=== PATIENT | female | born 1965 | race Caucasian/White ===

== ENCOUNTER → 2016-11-25 | Outpatient (CLI) | payer MEDICARE, OTHER | END | disposition home or self-care (01) | LOC: LABWHC1 14:02 | PROVIDERS: ATTEND Physical Medicine & Rehabilitation | DX: M47.812 Spondylosis without myelopathy or radiculopathy, cervical region (principal); M47.817 Spondylosis without myelopathy or radiculopathy, lumbosacral region; M51.17 Intervertebral disc disorders with radiculopathy, lumbosacral region; F43.10 Post-traumatic stress disorder, unspecified; M96.1 Postlaminectomy syndrome, not elsewhere classified; M51.24 Other intervertebral disc displacement, thoracic region; F45.41 Pain disorder exclusively related to psychological factors; Z16.30 Resistance to unspecified antimicrobial drugs; Z79.899 Other long term (current) drug therapy | CPT/HCPCS: 36415; 85652; 86140 ==

== ENCOUNTER → 2016-12-01 | Outpatient (CLI) | payer MEDICARE, OTHER ==
--- NOTE | 2016-12-02 07:28 | CT ---
EXAMINATION TYPE: CT lumbar spine wo con DATE OF EXAM: 12/01/2016 8:05 PM COMPARISON: Previous study dated 03/31/2016 HISTORY: severe low back pain CT DLP: 619.2 mGycm Automated exposure control for dose reduction was used. Unenhanced CT of the lumbar spine was performed. Bone and soft tissue window settings are submitted as well as coronal and sagittal reconstructions. FINDINGS: Visualized portions of the lungs are clear. There is no pleural or pericardial fluid. Paraspinal soft tissues are normal. There is a minimal degenerative grade 1 spondylolisthesis of L4-L5. Alignment otherwise normal. No fr actures are seen. At T12-L1 and L1-2, no definite abnormality is seen. At L2-3, there is mild disc space loss. There is a diffuse disc displacement. The intervertebral fora nabil are well maintained. The facets are unremarkable. At L3-4, the intervertebral foramina are well maintained. There is a diffuse disc displacement. There is mild hypertrophic changes in the facets. At L4-5, there is disc space loss. The intervertebral foramina are well maintained. There is moderate hypertrophic changes in the facets. There is a diffuse disc displacement. At L5-S1, there is disc space loss and vacuum phenomena. The intervertebral foramina are well [place]. There is a right paracentral disc protrusion displacing the traversing S1 nerve root on the righ t. IMPRESSION: 1. Right paracentral disc protrusion, L5-S1, displacing the traversing right S1 nerve root. 2. Diffuse degenerative disc disease and facet arthropathy.
== END | disposition home or self-care (01) ==
LOC: RADCTMAIN 19:40
PROVIDERS: ATTEND Physical Medicine & Rehabilitation
DX: M51.17 Intervertebral disc disorders with radiculopathy, lumbosacral region (principal); M51.16 Intervertebral disc disorders with radiculopathy, lumbar region; M46.86 Other specified inflammatory spondylopathies, lumbar region
CPT/HCPCS: 72131

== ENCOUNTER → 2017-01-24 | Outpatient (CLI) | payer MEDICARE, OTHER ==
--- NOTE | 2017-01-24 15:00 | XR ---
EXAMINATION TYPE: XR cervical spine limited DATE OF EXAM: 01/24/2017 2:53 PM COMPARISON: NONE HISTORY: Postop cervical disc surgery TECHNIQUE: 3 view cervical spine FINDINGS: Disc spaces are present C5-6 C6-7. Prevertebral space appears normal. Alignment appears nor mal. Posterior spinal lamellar line is intact. Remaining disc heights are preserved. Vertebral body h eights are preserved. IMPRESSION: 1. Postsurgical disc changes C5-6 C6-7.
== END | disposition home or self-care (01) ==
LOC: RADXRMAIN 14:37
PROVIDERS: ATTEND Neurological Surgery
DX: Z09 Encounter for follow-up examination after completed treatment for conditions other than malignant neoplasm (principal); Z98.1 Arthrodesis status
CPT/HCPCS: 72040

== ENCOUNTER → 2017-03-02 | Outpatient (CLI) | payer MEDICARE, OTHER ==
--- NOTE | 2017-03-02 15:42 | XR ---
Cervical spine HISTORY: Postop cervical spine disc replacement Exam correlated to previous dated for January 2017 The postoperative changes are stable, alignment is unchanged. Multilevel facet arthropathy is noted. Patient is edentulous. Incidental note made of calcified granuloma in the lung apices. Scoliotic curv ature in the thoracic spine. IMPRESSION: Stable postoperative follow-up.
== END | disposition home or self-care (01) ==
LOC: RADXRMAIN 15:03
PROVIDERS: ATTEND Neurological Surgery
DX: M50.30 Other cervical disc degeneration, unspecified cervical region (principal); Z98.890 Other specified postprocedural states
CPT/HCPCS: 72040

== ENCOUNTER → 2017-05-16 | Outpatient (CLI) | payer MEDICARE, OTHER ==
--- NOTE | 2017-05-17 08:42 | MM ---
Reason for exam: clinical finding. Last mammogram was performed 2 years and 2 months ago. History: Patient is postmenopausal. Family history of breast cancer in mother at age 61 and breast cancer in paternal grandmother at age 70. Excisional biopsy of the left breast, July 22, 2008. Took hormonal contraceptives for 3 years beginning at age 19. Took estrogen for 3 years beginning at age 44. Indicated problem(s): palpable abnormality and lump or thickening in the left breast. Physical Findings: Nurse Summary: 0.5 x 0.5cm nodule in the left breast at 10 o'clock and 2 o' clock (nurse cw). MG 3D Diag Mammo W/Cad ELIAN Bilateral CC and MLO view(s) were taken. Prior study comparison: March 13, 2015, left breast MG work up mamm w CAD LT. March 05, 2015, bilateral MG screening mammo w CAD. April 23, 2013, CAD bilateral diagnostic mammogram. The breast tissue is heterogeneously dense. This may lower the sensitivity of mammography. There is chronic nodularity in the left breast. 2 palpable markers at the left breast. A 5mm nodular asymmetry central posterior right breast is suspected benign. Previous exams did not include this far posterior tissue. 6 month follow up recommended for the right breast. These results were verbally communicated with the patient and result sheet given to the patient on 05/16/17. ASSESSMENT: Incomplete: need additional imaging evaluation, BI-RAD 0 RECOMMENDATION: Ultrasound of the left breast. (targeting palpable) MTDD
--- NOTE | 2017-05-17 08:45 | USB ---
Reason for exam: additional evaluation requested from abnormal screening. History: Patient is postmenopausal. Family history of breast cancer in mother at age 61 and breast cancer in paternal grandmother at age 70. Excisional biopsy of the left breast, July 22, 2008. Took hormonal contraceptives for 3 years beginning at age 19. Took estrogen for 3 years beginning at age 44. US Breast LT Left breast ultrasound includes all four quadrants, the retroareolar region and axilla. Finding demonstrates a 0.4 x 0.4 x 0.4cm round, cystic lesion at palpable site at 3 o'clock, benign, and corresponding to the chronic mammographic nodularity. No solid or cystic lesion seen at the second 10 o'clock palpable site. These results were verbally communicated with the patient and result sheet given to the patient on 05/16/17. ASSESSMENT: Probably benign, BI-RAD 3 RECOMMENDATION: 1. Follow-up diagnostic right mammogram in 6 months for the mammographic nodularity. 2. Manage on a clinical basis with regard to any suspicious palpable areas. BLANCA
== END | disposition home or self-care (01) ==
LOC: RADMAMWWP 13:45
PROVIDERS: ATTEND Family Medicine
DX: N63 Unspecified lump in breast (principal)
CPT/HCPCS: 76641; G0204; G0279

== ENCOUNTER → 2019-03-22 | Outpatient (CLI) | payer MEDICARE, OTHER ==
[2019-03-22 12:18] LABS: HCT 41.8 % (34.0-46.0); HGB 14.1 gm/dL (11.4-16.0); MCH 31.2 pg (25.0-35.0); MCHC 33.6 g/dL (31.0-37.0); MCV 92.8 fL (80.0-100.0); Mean Platelet Volume 6.6; Platelet Count 262 k/uL (150-450); RBC 4.51 m/uL (3.80-5.40); RDW 13.4 % (11.5-15.5); WBC 6.9 k/uL (3.8-10.6)
[2019-03-22 12:22] LABS: Appearance,Urine Clear (Clear); Bilirubin,Urine Negative (Negative); Blood,Urine Negative (Negative); Color,Urine Colorless; Glucose,Urine (UA) Negative (Negative); Ketones,Urine Negative (Negative); Leukocyte Esterase,Urine Negative (Negative); Nitrite,Urine Negative (Negative); Protein,Urine Negative (Negative); Specific Gravity,Urine 1.003 (1.001-1.035); Urobilinogen,Urine <2.0 mg/dL (<2.0)
[2019-03-22 14:21] LABS: Erythrocyte Sedimentation Rate 10 mm/hr (0-20)
[2019-03-22 19:01] LABS: African American GFR (CKD) 74.5 (60.0-200.0); Albumin 4.6 g/dL (3.80-4.90); Albumin/Globulin Ratio 2.42 (1.60-3.17); Anion Gap 5.7 mmol/L (4.00-12.00); C Reactive Protein 0.6 mg/dL (0.0-0.8); Carbon Dioxide 23.3 mmol/L (21.6-31.8); Globulin 1.9 g/dL (1.6-3.3); Magnesium 1.9 mg/dL (1.5-2.4); Potassium 4.1 mmol/L (3.5-5.5); Total Bilirubin 0.3 mg/dL (0.3-1.2); Total Protein 6.5 g/dL (6.2-8.2)
[2019-03-22 19:07] LABS: Folate, Serum 5.5 ng/mL
[2019-03-22 20:04] LABS: Vitamin D 25 Hydroxy 14.1 ng/mL (30.0-100.0)
[2019-03-22 20:25] LABS: Hemoglobin A1C 5.5 % (4.0-6.0)
[2019-03-22 20:31] LABS: Cyclic Citrull Pep IgG Unit <0.5 U/mL; Cyclic Citrullinated Pep IgG NEGATIVE (NEGATIVE); DNA Double-Stranded NEGATIVE (NEGATIVE); RNP 0.2 AI; Scleroderma SC-70 Ab <0.2 AI
[2019-03-26 06:58] LABS: Vit B1(Thiamine) 91 ug/L (38-122)
[2019-03-26 13:13] LABS: Histone Antibody 0.4 UNITS (<1.0)
[2019-03-26 13:45] LABS: Vitamin K 0.59 nmol/L (0.22-4.88)
[2019-03-27 06:29] LABS: Vitamin E (Alpha Tocopherol) 1007 ug/dL (500-1800)
[2019-03-29 14:18] LABS: Nicotinuric Acid None Detected
== END ==
LOC: LABWHC1 11:25
PROVIDERS: ATTEND Psychiatry & Neurology Pain Medicine
DX: G89.4 Chronic pain syndrome (principal); M79.7 Fibromyalgia; M25.50 Pain in unspecified joint; Z79.899 Other long term (current) drug therapy
CPT/HCPCS: 36415; 80053; 81003; 82306; 82550; 82607; 82746; 83036; 83516; 83519; 83540; 83550; 83735; 84207; 84425; 84446; 84590; 84591; 84597; 85027; 85652; 86038; 86140; 86200; 86225; 86235

== ENCOUNTER 2020-08-04 16:16 | Emergency (ER) | payer MEDICARE, OTHER ==
[2020-08-04 16:27] VITALS: RESP 18
--- NOTE | 2020-08-04 16:40 | ED ---
Psych HPI - General Source: patient, RN notes reviewed Mode of arrival: ambulatory Limitations: no limitations <Mika Harp - Last Filed: 08/04/20 16:38> <Judah Acuna - Last Filed: 08/04/20 19:52> - General Chief Complaint: Psychiatric Symptoms Stated Complaint: mental health Time Seen by Provider: 08/04/20 16:30 - History of Present Illness Initial Comments: This a 55-year-old female that presents to the emergency Department with chief complaint of depression, suicidal ideation. Patient states she was arrested last night and states that she was told that she may spend 2 years and [facility] because she's been taking her father's Dilaudid tablets and states that she had 35 of Dilaudid tablets on her last night. Patient states that she is depressed she has had thoughts about overdosing. Patient does admit to occasional call use no homicidal ideation. She states that she is not spending 2 years in [facility] and states that she rather kill herself. Patient denies any other illicit drug use or prescription medication use that's not hers. Patient has chronic back issues. She states she has been hospitalized several times in the past. (Mika Harp) - Related Data Home Medications Medication Instructions Recorded Confirmed Escitalopram [Lexapro] 20 mg PO HS 07/09/15 03/31/16 Furosemide [Lasix] 20 mg PO DAILY 07/09/15 03/31/16 Gabapentin [Neurontin] 300 mg PO BID 07/09/15 03/31/16 Levothyroxine Sodium [Synthroid] 75 mcg PO DAILY 07/09/15 03/31/16 Naproxen 500 mg PO BID 07/09/15 03/31/16 clonazePAM [KlonoPIN] 1 mg PO BID PRN 07/09/15 03/31/16 Montelukast [Singulair] 10 mg PO HS 07/23/15 03/31/16 Simvastatin [Zocor] 20 mg PO HS 07/23/15 03/31/16 Triamcinolone 0.1% Cream [Kenalog 1 applicatio TOPICAL QID PRN 07/23/15 03/31/16 0.1% Cream] Ibuprofen [Motrin] 100 mg PO Q4H PRN 03/04/16 03/31/16 Oxymetazoline 0.05% Nasl [place] 2 spray EA NOSTRIL BID 03/04/16 03/31/16 [Afrin 0.05% Nasal [place]] Albuterol Sulfate [Proair Hfa] 1 - 2 puff INHALATION RT-Q6H PRN 03/31/16 03/31/16 Baclofen [Lioresal] 10 mg PO TID 03/31/16 03/31/16 Calcitonin Nasal [Fortical] 1 spray NASAL DAILY 03/31/16 03/31/16 Docusate [Colace] 100 mg PO DAILY 03/31/16 03/31/16 Hydrocodone/Acetaminophen [[place] 1 tab PO Q8H PRN 03/31/16 03/31/16 7.5-325] Hypromellose [Nature's Tears] 1 drop BOTH EYES BID PRN 03/31/16 03/31/16 Prazosin HCl 10 mg PO HS 03/31/16 03/31/16 Topiramate [Topamax] 25 mg PO BID 03/31/16 03/31/16 rOPINIRole HCL [Requip] 1 mg PO HS 03/31/16 03/31/16 Previous Rx's Medication Instructions Recorded Famotidine [Pepcid] 40 mg PO BID 30 Days tab 03/10/16 Allergies Allergy/AdvReac Type Severity Reaction Status Date / Time varenicline tartrate AdvReac Confusion Verified 08/04/20 16:21 [From Chantix] Review of Systems ROS Other: All systems not noted in ROS Statement are negative. <Mika Harp - Last Filed: 08/04/20 16:38> ROS Other: All systems not noted in ROS Statement are negative. <Judah Acuna - Last Filed: 08/04/20 19:52> ROS Statement: Those systems with pertinent positive or pertinent negative responses have been documented in the HPI. Past Medical History Past Medical History: Fibromyalgia, Hyperlipidemia, Neurologic Disorder, Ost eoarthritis (OA), Seizure Disorder, Thyroid Disorder Additional Past Medical History / Comment(s): MIGRAINES, NEUROPATHY HANDS, FEET & LEGS, " RESTLESS BODY SYNDROME,". SCOLIOSIS, DDD, BACK PAIN. , RASH ON WRIST, ANEMIA. , HX OF EXPOSURE TO AGENT ORANGE, SEIZURES SINCE PUBERTY FROM POSSIBLE CHEMICAL EXPOSURE. , HX OF VIRAL VERTIGO. History of Any Multi-Drug Resistant Organisms: None Reported Past Surgical History: Back Surgery, Breast Surgery, Hysterectomy, Orthopedic Surgery Additional Past Surgical History / Comment(s): ACL REPAIR BOTH KNEES , LUNG BIOPSY 30 YEARS AGO, LUMPECTOMY LEFT BREAST. Past Anesthesia/Blood Transfusion Reactions: No Reported Reaction Past Psychological History: Anxiety, Depression, PTSD Smoking Status: Current every day smoker Past Alcohol Use History: Occasional Past Drug Use History: Marijuana - Past Family History Mother Family Medical History: Cancer Additional Family Medical History / Comment(s): BREAST CANCER Father Family Medical History: Cancer Additional Family Medical History / Comment(s): 5 DIFFERENT CANCERS. Sister(s) Family Medical History: Coronary Artery Disease (CAD) Additional Family Medical History / Comment(s): CABG @ 47 YRS OLD <Mika Harp M - Last Filed: 08/04/20 16:38> General Exam Limitations: no limitations General appearance: alert, in no apparent distress Head exam: Present: atraumatic, normocephalic, normal inspection Eye exam: Present: normal appearance, PERRL, EOMI. Absent: scleral icterus, conjunctival injection, periorbital swelling ENT exam: Present: normal exam, normal oropharynx, mucous membranes moist Neck exam: Present: normal inspection, full ROM. Absent: tenderness, meningismus, lymphadenopathy Respiratory exam: Present: normal lung sounds bilaterally. Absent: respiratory distress, wheezes, rales, rhonchi, stridor Cardiovascular Exam: Present: regular rate (Heart rate 102 on exam), normal rhythm, normal heart sounds. Absent: systolic murmur, diastolic murmur, rubs, gallop, clicks GI/Abdominal exam: Present: soft, normal bowel sounds. Absent: distended, tenderness, guarding, rebound, rigid Neurological exam: Present: alert, oriented X3 Psychiatric exam: Present: depressed, flat affect Skin exam: Present: warm, dry, intact, normal color. Absent: rash <Mika Harp M - Last Filed: 08/04/20 16:38> Course Vital Signs 08/04/20 16:21 Temperature 98.5 F Pulse Rate 118 H Respiratory 18 Rate Blood Pressure 117/68 O2 Sat by Pulse 94 L Oximetry Medical Decision Making <Judah Acuna - Last Filed: 08/04/20 19:52> - Medical Decision Making Patient evaluate EPS. The recommended discharged follow-up with her outpatient providers. Patient upon reevaluation is calm and agreeable to discharge. (Judah Acuna) - Lab Data Lab Results 08/04/20 Range/Units 16:41 Urine Opiates Screen Not Detected (NotDetected) Ur Oxycodone Screen Not Detected (NotDetected) Urine Methadone Screen Not Detected (NotDetected) Ur Propoxyphene Screen Not Detected (NotDetected) Ur Barbiturates Screen Not Detected (NotDetected) U Tricyclic Antidepress Not Detected (NotDetected) Ur Phencyclidine Scrn Not Detected (NotDetected) Ur Amphetamines Screen Not Detected (NotDetected) U Methamphetamines Scrn Not Detected (NotDetected) U Benzodiazepines Scrn Not Detected (NotDetected) Urine Cocaine Screen Not Detected (NotDetected) U Marijuana (THC) Screen Not Detected (NotDetected) Disposition <Mika Harp - Last Filed: 08/04/20 16:38> Is patient prescribed a controlled substance at d/c from ED?: No Time of Disposition: 19:52 <Judah Acuna - Last Filed: 08/04/20 19:52> Clinical Impression: Depressed Disposition: HOME SELF-CARE Condition: Good Instructions (If sedation given, give patient instructions): Medical Clearance for Psychiatric Care (ED) Referrals: Marta Oneal MD [Primary Care Provider] - 1-2 days
[2020-08-04 17:29] LABS: Amphetamine Screen,Urine Not Detected (NotDetected); Barbiturate Screen,Urine Not Detected (NotDetected); Benzodiazepines Screen,Urine Not Detected (NotDetected); Cocaine Screen,Urine Not Detected (NotDetected); Methadone Screen, Urine Not Detected (NotDetected); Opiate Screen,Urine Not Detected (NotDetected); Oxycodone Screen, Urine Not Detected (NotDetected); Phencyclidine Screen,Urine Not Detected (NotDetected); Tricyclic Antidepressant,Urine Not Detected (NotDetected); Urn Cannabinoid Scrn Not Detected (NotDetected)
[2020-08-04 20:15] VITALS: BP 136/76; PULSE 110; TEMP 98.6
== END 2020-08-04 20:18 | disposition home or self-care (01) ==
LOC: EC 16:16
DX: F32.9 Major depressive disorder, single episode, unspecified (principal); R45.851 Suicidal ideations; M79.7 Fibromyalgia; E78.5 Hyperlipidemia, unspecified; M19.90 Unspecified osteoarthritis, unspecified site; G40.909 Epilepsy, unspecified, not intractable, without status epilepticus; F41.9 Anxiety disorder, unspecified; F43.10 Post-traumatic stress disorder, unspecified; E07.9 Disorder of thyroid, unspecified; G25.81 Restless legs syndrome; G62.9 Polyneuropathy, unspecified; F17.200 Nicotine dependence, unspecified, uncomplicated; Z88.8 Allergy status to other drugs, medicaments and biological substances; Z79.1 Long term (current) use of non-steroidal anti-inflammatories (NSAID); Z79.899 Other long term (current) drug therapy; Z98.890 Other specified postprocedural states
CPT/HCPCS: 80306; 82075; 99285

== ENCOUNTER → 2020-08-27 | Outpatient (CLI) | payer MEDICARE, OTHER ==
--- NOTE | 2020-08-27 08:51 | CT ---
EXAMINATION TYPE: CT thoracic spine wo con DATE OF EXAM: 08/27/2020 COMPARISON: None HISTORY: . Viral female pain in thoracic spine / herniated disk T7-T8 TECHNIQUE: Contiguous axial scanning of the thoracic spine without IV contrast. Coronal and sagittal reconstructions performed. CT DLP: 622.5 mGycm Automated exposure control for dose reduction was used. FINDINGS: Small cervical ribs. Small T12 ribs. Some postoperative fusion changes within the visualized cervical spine. Accentuated mid thoracic kyphosis. Mild degenerative disc disease midthoracic spine with mild disc sp ventura narrowing and anterior endplate spondylosis. There is a central disc protrusion at T7-T8 which impresses on the ventral thecal sac but does not se em to contribute any significant spinal canal stenosis by CT. Facet arthropathy T11-T12 on the right. Also at T8-T9 on both sides. This contributes to mild neural foraminal narrowing at these levels. Small calcified granulomas throughout the lungs. No prevertebral paravertebral soft tissue abnormalit y. Gentle dextroconvex curvature centered along the mid thoracic spine. Vertebral body heights are prese rved and alignment is maintained. IMPRESSION: 1. GENTLE DEXTROCONVEX CURVATURE ALONG THE MID THORACIC SPINE. ACCENTUATED MID THORACIC KYPHOSIS WITH MILD DEGENERATIVE DISC DISEASE. 2. NO VERTEBRAL COMPRESSION COLLAPSE OR MALALIGNMENT. VERTEBRAE CENTRAL DISC PROTRUSION AT T7-T8 IMPRESSES ON THE VENTRAL THECAL SAC BUT DOES NOT SEEM TO C ONTRIBUTE ANY SIGNIFICANT SPINAL CANAL STENOSIS. 3. SMALL CERVICAL RIBS AND SMALL T12 RIBS. PARTIALLY VISUALIZED CERVICAL FUSION CHANGES. 4. MILD FACET ARTHROPATHY CONTRIBUTING TO MILD NEURAL FORAMINAL NARROWING ON THE RIGHT AT T11-T12 AND ON BOTH SIDES AT T8-T9.
== END | disposition home or self-care (01) ==
LOC: RADCTMAIN 08:07
PROVIDERS: ATTEND Psychiatry & Neurology Neurology
DX: M48.04 Spinal stenosis, thoracic region (principal); M51.24 Other intervertebral disc displacement, thoracic region; M51.34 Other intervertebral disc degeneration, thoracic region; M47.814 Spondylosis without myelopathy or radiculopathy, thoracic region; M40.294 Other kyphosis, thoracic region; Z98.1 Arthrodesis status
CPT/HCPCS: 72128

== ENCOUNTER → 2021-04-13 | Outpatient (CLI) | payer MEDICARE, OTHER ==
--- NOTE | 2021-04-13 15:09 | CTL ---
EXAMINATION TYPE: CT Low Dose Lung DATE OF EXAM ORDERED: 04/13/2021 COMPARISON: July 24 the cervical HISTORY: . Low Dose CT Lung Screening IV CONTRAST USED: None. SCREENING VISIT: First visit COMPARISON: None. TECHNIQUE: Low dose computed tomography scan was performed through the chest at 1 millimeter thick se ctions and reconstructed images in the coronal plane at [address] DIAGNOSTIC QUALITY: Satisfactory FINDINGS: LUNG NODULES: Calcified scattered pulmonary nodules are present. No noncalcified pulmonary nodules se en at this time. LUNGS: COPD: Severity: Mild Fibrosis: Severity:None Lymph nodes: None Other findings: None RIGHT PLEURAL SPACE: Effusion: None Calcification: None Thickening: None Pneumothorax: None LEFT PLEURAL SPACE: Effusion: None Calcification: None Thickening: None Pneumothorax: None HEART: Heart Size: Mildly enlarged Coronary calcification: Mild Pericardial effusion: None OTHER FINDINGS: Upper abdomen: No significant abnormality Bony thorax: Degenerative changes Supraclavicular region: No significant abnormalityOther: No significant abnormalityI IMPRESSION: Benign FOLLOW UP CT CHEST RECOMMENDATION: Follow-up screening in one year CT LUNG RAD: LUNG RAD CATEGORY category 1 benign
== END | disposition home or self-care (01) ==
LOC: RADCTMAIN 13:34
PROVIDERS: ATTEND Family Medicine
DX: Z12.2 Encounter for screening for malignant neoplasm of respiratory organs (principal); Z87.891 Personal history of nicotine dependence
CPT/HCPCS: 71271

== ENCOUNTER 2021-08-09 04:13 | Inpatient (IN) | payer MEDICARE, OTHER ==
[2021-08-09] MEDS ORDERED: SODIUM CHLORIDE 0.9% 2,000 ML IV ONE (04:22)
--- NOTE | 2021-08-09 04:45 | ED ---
Overdose HPI - General Stated Complaint: Mental Health Time Seen by Provider: 08/09/21 04:21 Source: patient, EMS Mode of arrival: EMS Limitations: physical limitation (Patient is uncooperative with history of this) - History of Present Illness Initial Comments: This patient is a 56-year-old woman who is brought to be evaluated for suspected toxic mushroom ingestion. The patient had reportedly called the [place] crisis line stating that she was attempting to kill herself by ingesting tea made from [employer] Mushrooms. The patient would not provide further details. She cannot state when she ingestion. MD Complaint: intentional overdose -: unknown Intent: suicide attempt How Overdose Was Discovered: called suicide hotline - Related Data Home Medications Medication Instructions Recorded Confirmed Escitalopram [Lexapro] 20 mg PO HS 07/09/15 03/31/16 Furosemide [Lasix] 20 mg PO DAILY 07/09/15 03/31/16 Gabapentin [Neurontin] 300 mg PO BID 07/09/15 03/31/16 Levothyroxine Sodium [Synthroid] 75 mcg PO DAILY 07/09/15 03/31/16 Naproxen 500 mg PO BID 07/09/15 03/31/16 clonazePAM [KlonoPIN] 1 mg PO BID PRN 07/09/15 03/31/16 Montelukast [Singulair] 10 mg PO HS 07/23/15 03/31/16 Simvastatin [Zocor] 20 mg PO HS 07/23/15 03/31/16 Triamcinolone 0.1% Cream [Kenalog 1 applicatio TOPICAL QID PRN 07/23/15 03/31/16 0.1% Cream] Ibuprofen [Motrin] 100 mg PO Q4H PRN 03/04/16 03/31/16 Oxymetazoline 0.05% Nasl [place] 2 spray EA NOSTRIL BID 03/04/16 03/31/16 [Afrin 0.05% Nasal [place]] Albuterol Sulfate [Proair Hfa] 1 - 2 puff INHALATION RT-Q6H PRN 03/31/16 03/31/16 Baclofen [Lioresal] 10 mg PO TID 03/31/16 03/31/16 Calcitonin Nasal [Fortical] 1 spray NASAL DAILY 03/31/16 03/31/16 Docusate [Colace] 100 mg PO DAILY 03/31/16 03/31/16 Hydrocodone/Acetaminophen [[place] 1 tab PO Q8H PRN 03/31/16 03/31/16 7.5-325] Hypromellose [Nature's Tears] 1 drop BOTH EYES BID PRN 03/31/16 03/31/16 Prazosin HCl 10 mg PO HS 03/31/16 03/31/16 Topiramate [Topamax] 25 mg PO BID 03/31/16 03/31/16 rOPINIRole HCL [Requip] 1 mg PO HS 03/31/16 03/31/16 Previous Rx's Medication Instructions Recorded Famotidine [Pepcid] 40 mg PO BID 30 Days tab 03/10/16 Allergies Allergy/AdvReac Type Severity Reaction Status Date / Time varenicline tartrate AdvReac Confusion Verified 08/04/20 16:21 [From Chantix] Review of Systems ROS Statement: Those systems with pertinent positive or pertinent negative responses have been documented in the HPI. ROS Other: All systems not noted in ROS Statement are negative. Limitations: ROS unobtainable due to patients medical condition Past Medical History Past Medical History: Fibromyalgia, Hyperlipidemia, Neurologic Disorder, Osteoarthritis (OA), Seizure Disorder, Thyroid Disorder Additional Past Medical History / Comment(s): MIGRAINES, NEUROPATHY HANDS, FEET & LEGS, " RESTLESS BODY SYNDROME,". SCOLIOSIS, DDD, BACK PAIN. , RASH ON WRIST, ANEMIA. , HX OF EXPOSURE TO AGENT ORANGE, SEIZURES SINCE PUBERTY FROM POSSIBLE CHEMICAL EXPOSURE. , HX OF VIRAL VERTIGO. History of Any Multi-Drug Resistant Organisms: None Reported Past Surgical History: Back Surgery, Breast Surgery, Hysterectomy, Orthopedic Surgery Additional Past Surgical History / Comment(s): ACL REPAIR BOTH KNEES , LUNG BIOPSY 30 YEARS AGO, LUMPECTOMY LEFT BREAST. Past Anesthesia/Blood Transfusion Reactions: No Reported Reaction Past Psychological History: Anxiety, Depression, PTSD Smoking Status: Current every day smoker Past Alcohol Use History: Occasional Past Drug Use History: Marijuana - Past Family History Mother Family Medical History: Cancer Additional Family Medical History / Comment(s): BREAST CANCER Father Family Medical History: Cancer Additional Family Medical History / Comment(s): 5 DIFFERENT CANCERS. Sister(s) Family Medical History: Coronary Artery Disease (CAD) Additional Family Medical History / Comment(s): CABG @ 47 YRS OLD General Exam General appearance: alert, in no apparent distress Head exam: Present: atraumatic, normocephalic Eye exam: Present: normal appearance, PERRL, EOMI. Absent: scleral icterus, conjunctival injection Neck exam: Present: normal inspection, full ROM Respiratory exam: Present: normal lung sounds bilaterally. Absent: respiratory distress, wheezes, rales, rhonchi, stridor Cardiovascular Exam: Present: regular rate, normal rhythm, normal heart sounds. Absent: systolic murmur, diastolic murmur, rubs, gallop GI/Abdominal exam: Present: soft. Absent: distended, tenderness, guarding, rebound, mass Extremities exam: Present: normal inspection, normal capillary refill. Absent: pedal edema, calf tenderness Back exam: Present: normal inspection. Absent: CVA tenderness (R), CVA tenderness (L) Neurological exam: Present: alert Psychiatric exam: Present: flat affect. Absent: agitated, manic, homicidal ideation Skin exam: Present: warm, dry, intact, normal color. Absent: rash Course Vital Signs 08/09/21 04:20 Temperature 97.9 F Pulse Rate 112 H Respiratory 18 Rate Blood Pressure 140/73 O2 Sat by Pulse 97 Oximetry Procedures - Restraint - Face to Face Restraint Occurrence 1 Patient's Immediate Situation: Endangers self safety, Endangers staff safety Patient's Reaction to the Intervention: Angry, Bizarre, Aggressive Patient's Medical & Behavioral Condition: Paranoid, Suicidal thoughts, Bizarre behavior Need to Continue or Terminate Restraint or Seclusion: Continue Face to Face Eval of Restraint Date: 08/09/21 Face to Face Eval of Restraint Time: 04:50 Medical Decision Making - Lab Data Result diagrams: 08/09/21 05:10 Lab Results 08/09/21 08/09/21 Range/Units 05:10 05:10 WBC 10.8 H (3.8-10.6) k/uL RBC 5.25 (3.80-5.40) m/uL Hgb 17.0 H (11.4-16.0) gm/dL Hct 51.2 H (34.0-46.0) % MCV 97.7 (80.0-100.0) fL MCH 32.4 (25.0-35.0) pg MCHC 33.2 (31.0-37.0) g/dL RDW 13.9 (11.5-15.5) % Plt Count 319 (150-450) k/uL MPV 7.3 Neutrophils % 51 % Lymphocytes % 40 % Monocytes % 4 % Eosinophils % 2 % Basophils % 1 % Neutrophils # 5.4 (1.3-7.7) k/uL Lymphocytes # 4.3 (1.0-4.8) k/uL Monocytes # 0.4 (0-1.0) k/uL Eosinophils # 0.3 (0-0.7) k/uL Basophils # 0.1 (0-0.2) k/uL PT 9.9 (9.0-12.0) sec INR 0.9 (<1.2) APTT 25.0 (22.0-30.0) sec Disposition Referrals: Marta Oneal MD [Primary Care Provider] - 1-2 days
[2021-08-09 05:25] LABS: Basophils # (A) 0.1 k/uL (0-0.2); Basophils % (A) 1 %; Eosinophils # (A) 0.3 k/uL (0-0.7); Eosinophils % (A) 2 %; HCT 51.2 % (34.0-46.0); Lymphocytes # (A) 4.3 k/uL (1.0-4.8); Lymphocytes % (A) 40 %; MCH 32.4 pg (25.0-35.0); MCHC 33.2 g/dL (31.0-37.0); MCV 97.7 fL (80.0-100.0); Mean Platelet Volume 7.3; Monocytes # (A) 0.4 k/uL (0-1.0); Monocytes % (A) 4 %; Neutrophils # (A) 5.4 k/uL (1.3-7.7); Neutrophils % (A) 51 %; Platelet Count 319 k/uL (150-450); RBC 5.25 m/uL (3.80-5.40); RDW 13.9 % (11.5-15.5); WBC 10.8 k/uL (3.8-10.6)
[2021-08-09 05:36] LABS: INR 0.9 (<1.2); Prothrombin Time 9.9 sec (9.0-12.0)
[2021-08-09 05:57] LABS: ALT 39 U/L (4-34); AST 35 U/L (14-36); Acetaminophen <10.0 ug/mL; African American GFR (CKD) 71 (>60 ml/min/1.73 sqM); Albumin 5.2 g/dL (3.5-5.0); Alkaline Phosphatase 98 U/L (38-126); Anion Gap 24 mmol/L; Blood Urea Nitrogen 13 mg/dL (7-17); Calcium 10.3 mg/dL (8.4-10.2); Carbon Dioxide 12 mmol/L (22-30); Chloride 110 mmol/L (98-107); Glucose 128 mg/dL (74-99); Non-African American GFR(CKD) 62 (>60 ml/min/1.73 sqM); Potassium 4.7 mmol/L (3.5-5.1); Salicylate <1.0 mg/dL; Sodium 146 mmol/L (137-145); Total Bilirubin 0.5 mg/dL (0.2-1.3); Total Protein 8.4 g/dL (6.3-8.2)
[2021-08-09] MEDS ORDERED: ACTIVATED CHARCOAL-SORBITOL 50 GM/240 ML BOTTLE PO STA (06:21)
[2021-08-09 06:35] LABS: Alcohol 215 mg/dL
[2021-08-09] MEDS ORDERED: ALBUTEROL NEBULIZED 2.5 MG/3 ML INHALATION STA (06:48)
[2021-08-09] MEDS ORDERED: NALOXONE 0.4 MG/ML 1 ML VIAL IV PRN (07:11)
[2021-08-09] MEDS: SODIUM CHLORIDE 0.9% 1,000 ML IV SCH ×2 (08:29→14:48)
[2021-08-09 09:15] LABS: VBG PH 7.24 (7.31-7.41)
[2021-08-09] MEDS: DEXTROSE 5% IN WATER 1,000 ML with SODIUM BICARB (1 MEQ/ML) 150 ML IV SCH ×2 (12:06→20:49)
[2021-08-09 12:19] LABS: Amphetamine Screen,Urine Not Detected (NotDetected); Barbiturate Screen,Urine Not Detected (NotDetected); Benzodiazepines Screen,Urine Not Detected (NotDetected); Cocaine Screen,Urine Not Detected (NotDetected); Methadone Screen, Urine Not Detected (NotDetected); Opiate Screen,Urine Not Detected (NotDetected); Oxycodone Screen, Urine Not Detected (NotDetected); Phencyclidine Screen,Urine Not Detected (NotDetected); Tricyclic Antidepressant,Urine Not Detected (NotDetected); Urn Cannabinoid Scrn Detected (NotDetected)
[2021-08-09 13:34] LABS: ALT 31 U/L (4-34); AST 28 U/L (14-36); African American GFR (CKD) >90 (>60 ml/min/1.73 sqM); Albumin 3.8 g/dL (3.5-5.0); Alkaline Phosphatase 79 U/L (38-126); Anion Gap 10 mmol/L; Blood Urea Nitrogen 9 mg/dL (7-17); C Reactive Protein 1.2 mg/dL (<1.0); Carbon Dioxide 17 mmol/L (22-30); Chloride 113 mmol/L (98-107); Creatine Kinase 160 U/L (30-135); Glucose 97 mg/dL (74-99); Non-African American GFR(CKD) 89 (>60 ml/min/1.73 sqM); Potassium 4.3 mmol/L (3.5-5.1); Sodium 140 mmol/L (137-145); Total Bilirubin 0.3 mg/dL (0.2-1.3); Total Protein 6.3 g/dL (6.3-8.2)
[2021-08-09] MEDS ORDERED: NICOTINE GUM (POLACRILEX) 2 MG GUM BUCCAL PRN (15:09)
[2021-08-09] MEDS ORDERED: ONDANSETRON 4 MG/2 ML VIAL IVP PRN (16:13)
[2021-08-09] MEDS ORDERED: ACETAMINOPHEN TAB 325 MG TAB PO PRN (16:13)
--- NOTE | 2021-08-09 16:19 | P.HPIM ---
History of Present Illness H&P Date: 08/09/21 (patient seen at 0905) Chief Complaint: overdose Patient is a 56-year-old female with a past medical history of depression currently following with a counselor and on multiple medications, COPD, fibromyalgia, and multiple other comorbid conditions who presented with police for psychiatric evaluation. Patient had called the [place] suicide hotline and reported taking toxic mushrooms. She reported taking mushrooms. The ER she underwent an extensive evaluation. Initially her white blood cell count was 10.8, hemoglobin 17, sodium 146, chloride 110, carbon dioxide 12, glucose 128, lactic acid 7.6, calcium 10.3, ALT 39, serum alcohol to 15. Urine drug screen was negative. Poison control was contacted and recommended 24 hours of monitoring. Patient seen and examined at bedside. She initially states she is tired and wants to left alone. She states that she was depressed and purposely took the mushrooms, she reports it is probably several tablespoons worth. She states she does not drink alcohol on a consistent basis. She does follow with a counselor and take her medications appropriately but has been struggling with suicidal ideation. She reports no history of prior liver or kidney issues. She denies any nausea, vomiting, diarrhea, shortness of breath, chest pain, lightheaded or dizziness. Rechecked in the afternoon and patient has started having some diarrhea and black stools Pertinent positives and negatives as discussed in HPI, a complete review of systems was performed and all other systems are negative. General: non toxic, no distress, appears at stated age Derm: warm, dry, multiple tattoos, redness of bilateral breast Head: atraumatic, normocephalic, symmetric Eyes: EOMI, no lid lag, anicteric sclera, pupils equal round reactive to light ENT: Nose and ears atraumatic, no thrush, no pharyngeal erythema Neck: No thyromegaly, no cervical lymphadenopathy, trachea midline, supple Mouth: no lip lesion, mucus membranes moist Cardiovascular: S1S2 reg, no murmur, positive posterior tibial pulse bilateral, no edema, capillary refill less than 2 seconds Lungs: clear to ascultation bilateral, no ronchi, no rales, no wheeze, no accessory muscle use Abdominal: soft, nontender to palpation, no guarding, no appreciable organomegaly, normal bowel sounds Ext: no gross muscle atrophy, muscle strength muscle strength 5 out of 5 in all 4 extremities, no contractures Neuro: CN II-XI grossly intact, light touch intact all 4 extremities, finger to nose within normal limits, Psych: Alert, oriented 3, flat affect, tired, has eyes she did with her hand Intentional overdose with toxic mushrooms History of depression Metabolic acidosis likely secondary to above Lactic acidosis -Continue with supportive care -Poison control recommendations -Change IV fluids to D5 with 3 A of bicarbonate secondary to acidosis and VBG with pH of 7.24 -Follow liver enzymes secondary to overdose -Suicide precautions -Consult psychiatry - hold lasix Hypothyroidism - check TSH - Synthroid Chronic: Neuropathy Migraines Dyslipidemia- not on meds Seizure disorder- not on meds The patient is admitted with an anticipated greater than 2 midnight stay for evaluation of mushroom toxicity, lactic acidosis Surrogate decision-maker: Patient is unable to 0.1 CODE STATUS: Full by default as patient does not have capacity to make this deci michelle currently DVT prophylaxis: Heparin Discussed with: Patient Anticipated discharge date: 24-[address]: [facility] A total of 65 minutes was spent on the care of this complex patient more than 50% of the time was spent in counseling and care coordination. Past Medical History Past Medical History: Fibromyalgia, Hyperlipidemia, Neurologic Disorder, Osteoarthritis (OA), Seizure Disorder, Thyroid Disorder Additional Past Medical History / Comment(s): MIGRAINES, NEUROPATHY HANDS, FEET & LEGS, " RESTLESS BODY SYNDROME,". SCOLIOSIS, DDD, BACK PAIN. , RASH ON WRIST, ANEMIA. , HX OF EXPOSURE TO AGENT ORANGE, SEIZURES SINCE PUBERTY FROM POSSIBLE CHEMICAL EXPOSURE. , HX OF VIRAL VERTIGO. History of Any Multi-Drug Resistant Organisms: None Reported Past Surgical History: Back Surgery, Breast Surgery, Hysterectomy, Orthopedic Surgery Additional Past Surgical History / Comment(s): ACL REPAIR BOTH KNEES , LUNG BIOPSY 30 YEARS AGO, LUMPECTOMY LEFT BREAST. Past Anesthesia/Blood Transfusion Reactions: No Reported Reaction Past Psychological History: Anxiety, Depression, PTSD Smoking Status: Current every day smoker Past Alcohol Use History: Occasional Past Drug Use History: Marijuana - Past Family History Mother Family Medical History: Cancer Additional Family Medical History / Comment(s): BREAST CANCER Father Family Medical History: Cancer Additional Family Medical History / Comment(s): 5 DIFFERENT CANCERS. Sister(s) Family Medical History: Coronary Artery Disease (CAD) Additional Family Medical History / Comment(s): CABG @ 47 YRS OLD Medications and Allergies Home Medications Medication Instructions Recorded Confirmed Type Furosemide [Lasix] 20 mg PO DAILY 07/09/15 08/09/21 History Montelukast [Singulair] 10 mg PO HS 07/23/15 08/09/21 History Albuterol Sulfate [Proair Hfa] 2 puff INHALATION RT-BID 03/31/16 08/09/21 History Baclofen [Lioresal] 10 mg PO BID@0900,1400 03/31/16 08/09/21 History Prazosin HCl 10 mg PO HS 03/31/16 08/09/21 History Azelastine HCl 2 spr EA NOSTRIL BID 08/09/21 08/09/21 History Baclofen 30 mg PO HS 08/09/21 08/09/21 History Ibuprofen [Motrin] 800 mg PO BID PRN 08/09/21 08/09/21 History Levothyroxine Sodium 88 mcg PO DAILY 08/09/21 08/09/21 History Mirtazapine [Remeron] 45 mg PO HS 08/09/21 08/09/21 History OLANZapine 15 mg PO DAILY 08/09/21 08/09/21 History Vilazodone HCl [Viibryd] 10 mg PO DAILY 08/09/21 08/09/21 History Vilazodone HCl [Viibryd] 20 mg PO DAILY 08/09/21 08/09/21 History clonazePAM [KlonoPIN] 0.5 mg PO BID PRN 08/09/21 08/09/21 History rOPINIRole HCL [Requip] 4 mg PO HS 08/09/21 08/09/21 History traZODone HCL [Desyrel] 300 mg PO HS 08/09/21 08/09/21 History Allergies Allergy/AdvReac Type Severity Reaction Status Date / Time varenicline tartrate AdvReac Confusion Verified 08/04/20 16:21 [From [facility]] Physical Exam Osteopathic Statement: *. No significant issues noted on an osteopathic structural exam other than those noted in the History and Physical/Consult. Vitals: Vital Signs Temp Pulse Resp BP Pulse Ox 08/09/21 08:06 98.2 F 100 15 110/67 92 L 08/09/21 07:43 108 H 08/09/21 07:36 100 08/09/21 04:20 97.9 F 112 H 18 140/73 97 Intake and Output 08/08/21 08/09/21 08/09/21 22:59 06:59 14:59 Other: Weight 68.039 kg Results CBC & Chem 7: 08/09/21 05:10 08/09/21 13:08 Labs: Abnormal Lab Results - Last 24 Hours (Table) 08/09/21 08/09/21 08/09/21 Range/Units 05:10 05:10 05:10 WBC 10.8 H (3.8-10.6) k/uL Hgb 17.0 H (11.4-16.0) gm/dL Hct 51.2 H (34.0-46.0) % VBG pH (7.31-7.41) VBG HCO3 (24-28) mmol/L Sodium 146 H (137-145) mmol/L Chloride 110 H (98-107) mmol/L Carbon Dioxide 12 L (22-30) mmol/L Glucose 128 H (74-99) mg/dL Plasma Lactic Acid Keith 7.6 H* (0.7-2.0) mmol/L Calcium 10.3 H (8.4-10.2) mg/dL ALT 39 H (4-34) U/L Total Protein 8.4 H (6.3-8.2) g/dL Albumin 5.2 H (3.5-5.0) g/dL Serum Alcohol 215 H* mg/dL 08/09/21 08/09/21 Range/Units 08:55 08:55 WBC (3.8-10.6) k/uL Hgb (11.4-16.0) gm/dL Hct (34.0-46.0) % VBG pH 7.24 L (7.31-7.41) VBG HCO3 18 L (24-28) mmol/L Sodium (137-145) mmol/L Chloride (98-107) mmol/L Carbon Dioxide (22-30) mmol/L Glucose (74-99) mg/dL Plasma Lactic Acid Keith 2.7 H* (0.7-2.0) mmol/L Calcium (8.4-10.2) mg/dL ALT (4-34) U/L Total Protein (6.3-8.2) g/dL Albumin (3.5-5.0) g/dL Serum Alcohol mg/dL
[2021-08-09] MEDS: NICOTINE 21MG/24HR PATCH TRANSDERM SCH (16:27)
[2021-08-09 20:43] LABS: ABG Base Excess 0.7 mmol/L; ABG HCO3 25 mmol/L (21-25); ABG Oxygen Saturation 95.2 % (94-97); ABG PCO2 39 mmHg (35-45); ABG PH 7.42 (7.35-7.45); ABG PO2 71 mmHg (83-108); ABG TCO2 26 mmol/L (19-24); Allen Test Performed? Yes
[2021-08-09] MEDS: ALBUTEROL NEBULIZED 2.5 MG/3 ML INHALATION SCH (20:47)
[2021-08-09] MEDS: BACLOFEN 10 MG TAB PO SCH (20:48)
[2021-08-09] MEDS: MONTELUKAST 10 MG TAB PO SCH (20:49)
[2021-08-09] MEDS: rOPINIRole HCL 4 MG TABLET PO SCH (21:11)
[2021-08-09] MEDS: PRAZOSIN 1 MG CAP PO SCH (21:11)
[2021-08-09] MEDS: AZELASTINE 137MCG/SPRAY EA NOSTRIL SCH (21:11)
[2021-08-10] MEDS: LEVOTHYROXINE 88 MCG TAB PO SCH (07:03)
[2021-08-10 07:49] LABS: HCT 44.1 % (34.0-46.0); MCH 32.8 pg (25.0-35.0); MCHC 34.1 g/dL (31.0-37.0); MCV 96.2 fL (80.0-100.0); Mean Platelet Volume 6.9; Platelet Count 222 k/uL (150-450); RBC 4.59 m/uL (3.80-5.40); RDW 13.4 % (11.5-15.5)
[2021-08-10 08:00] LABS: ALT 28 U/L (4-34); AST 27 U/L (14-36); African American GFR (CKD) >90 (>60 ml/min/1.73 sqM); Albumin 3.7 g/dL (3.5-5.0); Alkaline Phosphatase 82 U/L (38-126); Anion Gap 7 mmol/L; Blood Urea Nitrogen 8 mg/dL (7-17); Calcium 9.8 mg/dL (8.4-10.2); Carbon Dioxide 24 mmol/L (22-30); Chloride 107 mmol/L (98-107); Glucose 97 mg/dL (74-99); Non-African American GFR(CKD) >90 (>60 ml/min/1.73 sqM); Potassium 3.8 mmol/L (3.5-5.1); Sodium 138 mmol/L (137-145); Total Bilirubin 0.6 mg/dL (0.2-1.3); Total Protein 6.3 g/dL (6.3-8.2)
[2021-08-10] MEDS: ALBUTEROL NEBULIZED 2.5 MG/3 ML INHALATION SCH ×2 (08:46→21:14)
[2021-08-10] MEDS ORDERED: OLANZapine 7.5 MG TAB PO SCH (09:00)
[2021-08-10 09:04] LABS: T4, Free (Free Thyroxine) 0.86 ng/dL (0.78-2.19)
[2021-08-10] MEDS: BACLOFEN 10 MG TAB PO SCH ×3 (09:04→20:27)
[2021-08-10] MEDS: NICOTINE 21MG/24HR PATCH TRANSDERM SCH (09:04)
--- NOTE | 2021-08-10 10:08 | P.PN ---
Subjective Progress Note Date: 08/10/21 Feels okay, denies suicidal thoughts. In bed, does not appear to be in distress. Sitter at bedside. Objective - Vital Signs Vital signs: Vital Signs Temp 98.9 F 08/10/21 04:30 Pulse 74 08/10/21 08:56 Resp 16 08/10/21 08:56 BP 131/81 08/10/21 04:30 Pulse Ox 94 L 08/10/21 08:48 Intake & Output 08/09/21 08/10/21 08/10/21 18:59 06:59 18:59 Intake Total 300 Balance 300 Weight 79.379 kg 78.6 kg Intake: Intake, IV Titration 300 Amount Dextrose 5% in Water 1, 300 000 ml @ 150 mls/hr IV . Q7H40M HUMBERTO with Sodium Bicarb (1 Meq/ml) 150 ml Rx#:[id number] Other: Voiding Method Toilet # Voids 1 - Exam Constitutional: No acute distress, conversant, pleasant Eyes: Anicteric sclerae, moist conjunctiva, no lid-lag, PERRLA ENMT: NC/AT,Oropharynx clear, no erythema, exudates Neck:Supple, FROM, no masses, or JVD Lungs: Clear to auscultation, Clear to percussion, Normal respiratory effort, no accessory muscle use Cardiovascular: Heart regular in rate and rhythm, No murmurs, gallops, or rubs no peripheral edema Abdominal: Soft Nontender, nom distended, no guarding, no rebound or rigidity, Normoactive bowel sounds No hepatomegaly, No splenomegaly, No palpable mass No abdominal wall hernia noted Skin: Normal temperature, tone, texture, turgor, No induration No subcutaneous n odules, No rash, lesions, No ulcers Extremities:No digital cyanosis No clubbing, Pedal pulses intact and symmetrical Radial pulses intact and symmetrical Normal gait and station, No calf tenderness Psychiatric: Depressed Neuro: Muscles Strength 5/5 in all 4 extremities, Sensation to light touch grossly present throughout, Cranial nerves II-XII grossly intact. No focal sensory deficits - Labs CBC & Chem 7: 08/10/21 07:13 08/10/21 07:13 Labs: Abnormal Lab Results - Last 24 Hours (Table) 08/09/21 08/09/21 08/09/21 Range/Units 09:47 13:08 13:08 ABG pO2 (83-108) mmHg ABG Total CO2 (19-24) mmol/L Chloride 113 H (98-107) mmol/L Carbon Dioxide 17 L (22-30) mmol/L Plasma Lactic Acid Keith 2.1 H* (0.7-2.0) mmol/L Creatine Kinase 160 H (30-135) U/L C-Reactive Protein 1.2 H (<1.0) mg/dL TSH (0.465-4.680) mIU/L U Marijuana (THC) Screen Detected H (NotDetected) 08/09/21 08/10/21 Range/Units 20:40 07:13 ABG pO2 71 L (83-108) mmHg ABG Total CO2 26 H (19-24) mmol/L Chloride (98-107) mmol/L Carbon Dioxide (22-30) mmol/L Plasma Lactic Acid Keith (0.7-2.0) mmol/L Creatine Kinase (30-135) U/L C-Reactive Protein (<1.0) mg/dL TSH 11.600 H (0.465-4.680) mIU/L U Marijuana (THC) Screen (NotDetected) Assessment and Plan Assessment: Intentional overdose with toxic mushrooms History of depression Metabolic acidosis likely secondary to above Lactic acidosis -Continue with supportive care -Poison control recommendations -Received bicarbonate-containing fluids. -Follow liver enzymes secondary to overdose -Suicide precautions -Consult psychiatry - hold lasix Hypothyroidism - Synthroid Chronic: Neuropathy Migraines Dyslipidemia- not on meds Seizure disorder- not on meds Disposition: Likely to mental health unit pending psychiatry evaluation.
[2021-08-10] MEDS: AZELASTINE 137MCG/SPRAY EA NOSTRIL SCH ×2 (11:21→20:27)
--- NOTE | 2021-08-10 13:45 | P.CN ---
Psychiatric Consult - . Consult date: 08/10/21 Consult:: 08/10/21 12:27 IDENTIFYING DATA: This patient is a 56-year-old female, who currently lives with her sister and her boyfriend. She has 1 daughter and lives in a house. She is technically at this time however has been for years now. REASON FOR REFERRAL: Psychiatry was consulted for suicide attempt. HISTORY OF PRESENT ILLNESS: The patient presented to the hospital as she claimed that she ingested toxic mushrooms at home. Apparently patient called the ID crisis line speaking of suicidal thoughts and her plan to overdose on these mushrooms. Her UDS is positive for THC. Her lactic acid was elevated. Patient was admitted medically and psychiatry was evaluated today. Patient was in the room with her sitter. She claims that she did not take any of the toxic mushrooms and states that "they thought I actually took the mushrooms but I didn't". She states that she was having a bad night the night. She claims that she had really bad PTSD and that she had no known triggers. She completely adamantly denied taking any of the mushrooms. She states that she has been dealing with chronic depression however is denying any suicidal thoughts today she does speak of anxiety poor sleep and poor appetite. At this time patient denies any current suicidal or homical ideations, intent or plan. Patient denies any auditory, visual hallucinations and denies any paranoia or delusions. Patients admits to using cigarettes and marijuana occasionally. Patient appeared to have fairly poor insight and judgment. PAST PSYCHIATRIC HISTORY: Patient has a a history of depression and anxiety. She claims that she has been on several different medications in the past and is now on Zyprexa and Minipress. She states that she was once psychiatrically hospitalized several years ago on the mental health unit. She states that she has a provider at [facility] and she goes there for therapy. She claims that she had 1 suicide attempt 30 years ago however was taken on what happened. Past Medical History: Fibromyalgia, Hyperlipidemia, Neurologic Disorder, Osteoarthritis (OA), Seizure Disorder, Thyroid Disorder Additional Past Medical History / Comment(s): MIGRAINES, NEUROPATHY HANDS, FEET & LEGS, " RESTLESS BODY SYNDROME,". SCOLIOSIS, DDD, BACK PAIN. , RASH ON WRIST, ANEMIA. , HX OF EXPOSURE TO AGENT ORANGE, SEIZURES SINCE PUBERTY FROM POSSIBLE CHEMICAL EXPOSURE. , HX OF VIRAL VERTIGO. ALLERGIES: as per EMR. CHEMICAL DEPENDENCY HISTORY: as per HPI. FAMILY PSYCHIATRIC/SUBSTANCE USE HISTORY: States that her sister and mother both have depression and anxiety SOCIAL HISTORY: Patient was born and raised [place] she states that she did some University and completed high school. 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 She states that she is currently however has been for several years now. She has 1 daughter. She lives in a house with her sister and her boyfriend. She denies any legal history. MENTAL STATUS EXAM: General Appearance: Patient appears to be stated age is alert, guarded/evasive. Patient appears to have fair hygiene and grooming wearing hospital gown with poor eye contact. Behavior: Patient is calmly lying in bed without any agitated behavior. uncooperative Speech: Patient's speech is fluent and nonpressured. Mood/Affect: Patient reports their mood is "depressed and anxious", affect is congruent Suicidality/Homicidality: Patient denies having any suicidal or homicidal ideation intent or plan. Perceptions: Patient denies any visual hallucinations and denies any auditory hallucinations Though content/process: There is no evidence of any delusional thought content and thought process is linear and goal-directed. Memory and concentration: AOX3, grossly intact for the purposes of this session. Can spell "WORLD" backwards Judgment and insight: poor IMPRESSIONS: Major depressive disorder, recurrent, severe without psychotic features PTSD Cannabis use disorder mild Nicotine dependence PLAN: -At this time patient DOES meet criteria for inpatient psychiatric admission. -Delirium precautions recommended with patient including - avoiding use of narcotics and INSURANCE ADVISER sedatives, limit anticholinergic medications when possible, frequent re-orientation, minimize use of restraints, open window shades during the day and close them at night -Would recommend the following medication changes/additions: Zyprexa 10 mg daily for mood adjunct/anxiety. Minipress 10 mg daily at bedtime for nightmares. -Continue 1:1 sitter for safety until patient is admitted to the mental health unit -Cannot leave AMA at this time. Patient will need a petition and certification if attempting to leave AMA. -Sql Engineer spoke with patient about substance abuse and the harmful effects on medical and mental health, patient verbally understood and agreed. -When medically stable, patient is eligible for transfer to a psych bed when available. -Communicated plan to patient's nurse -Psychiatry will sign off at this time -Please contact with any questions.
[2021-08-10] MEDS: PRAZOSIN 1 MG CAP PO SCH (20:26)
[2021-08-10] MEDS: MONTELUKAST 10 MG TAB PO SCH (20:26)
[2021-08-10] MEDS: rOPINIRole HCL 4 MG TABLET PO SCH (20:27)
[2021-08-10] MEDS ORDERED: OLANZapine 10 MG TAB PO SCH (21:00)
[2021-08-11] MEDS: LEVOTHYROXINE 88 MCG TAB PO SCH (06:26)
[2021-08-11 08:18] VITALS: RESP 16
[2021-08-11] MEDS: ALBUTEROL NEBULIZED 2.5 MG/3 ML INHALATION SCH (08:51)
[2021-08-11] MEDS ORDERED: OLANZapine 10 MG TAB PO SCH (09:00)
[2021-08-11] MEDS: AZELASTINE 137MCG/SPRAY EA NOSTRIL SCH (09:43)
[2021-08-11] MEDS: BACLOFEN 10 MG TAB PO SCH ×2 (09:43→14:27)
[2021-08-11] MEDS: NICOTINE 21MG/24HR PATCH TRANSDERM SCH (09:43)
[2021-08-11 10:06] LABS: Basophils % (A) 1 %; Eosinophils # (A) 0.3 k/uL (0-0.7); Eosinophils % (A) 5 %; HCT 45.9 % (34.0-46.0); HGB 15.5 gm/dL (11.4-16.0); Lymphocytes # (A) 1.7 k/uL (1.0-4.8); Lymphocytes % (A) 32 %; MCH 32.8 pg (25.0-35.0); MCHC 33.9 g/dL (31.0-37.0); MCV 96.7 fL (80.0-100.0); Mean Platelet Volume 7.1; Monocytes # (A) 0.3 k/uL (0-1.0); Monocytes % (A) 5 %; Neutrophils # (A) 2.9 k/uL (1.3-7.7); Neutrophils % (A) 56 %; Platelet Count 202 k/uL (150-450); RBC 4.74 m/uL (3.80-5.40); RDW 13.3 % (11.5-15.5); WBC 5.2 k/uL (3.8-10.6)
--- NOTE | 2021-08-11 10:09 | P.DS ---
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 Patient had called the [place] suicide hotline and reported taking toxic mushrooms. She reported taking mushrooms. The ER she underwent an extensive evaluation. Initially her white blood cell count was 10.8, hemoglobin 17, sodium 146, chloride 110, carbon dioxide 12, glucose 128, lactic acid 7.6, calcium 10.3, ALT 39, serum alcohol to 15. Urine drug screen was negative. Poison control was contacted and recommended 24 hours of monitoring. Patient seen and examined at bedside. She initially states she is tired and wants to left alone. She states that she was depressed and purposely took the mushrooms, she reports it is probably several tablespoons worth. She states she does not drink alcohol on a consistent basis. She does follow with a counselor and take her medications appropriately but has been struggling with suicidal ideation. She reports no history of prior liver or kidney issues. She denies any nausea, vomiting, diarrhea, shortness of breath, chest pain, lightheaded or dizziness. Rechecked in the afternoon and patient has started having some diarrhea and black stools Hospital course and treatment: Patient was suicidal and. She ingested toxic mushrooms. She was placed on bicarbonate-containing solution. Poison control was contacted. She remained hemodynamically stable. She was evaluated by psychiatry and recommended inpatient admission. Patient will be discharged to inpatient psychiatry once approved. Patient Condition at Discharge: Fair Plan - Discharge Summary Discharge Rx Participant: No New Discharge Prescriptions: Continue Furosemide [Lasix] 20 mg PO DAILY Montelukast [Singulair] 10 mg PO HS Baclofen [Lioresal] 10 mg PO BID@0900,1400 Albuterol Sulfate [Proair Hfa] 2 puff INHALATION RT-BID Prazosin HCl 10 mg PO HS OLANZapine 15 mg PO DAILY Levothyroxine Sodium 88 mcg PO DAILY clonazePAM [KlonoPIN] 0.5 mg PO BID PRN PRN Reason: Anxiety Baclofen 30 mg PO HS Azelastine HCl 2 spr EA NOSTRIL BID traZODone HCL [Desyrel] 300 mg PO HS rOPINIRole HCL [Requip] 4 mg PO HS Ibuprofen [Motrin] 800 mg PO BID PRN PRN Reason: Pain Vilazodone HCl [Viibryd] 20 mg PO DAILY Vilazodone HCl [Viibryd] 10 mg PO DAILY Discontinued Mirtazapine [Remeron] 45 mg PO HS Discharge Medication List Furosemide [Lasix] 20 mg PO DAILY 07/09/15 [History] Montelukast [Singulair] 10 mg PO HS 07/23/15 [History] Albuterol Sulfate [Proair Hfa] 2 puff INHALATION RT-BID 03/31/16 [History] Baclofen [Lioresal] 10 mg PO BID@0900,1400 03/31/16 [History] Prazosin HCl 10 mg PO HS 03/31/16 [History] Azelastine HCl 2 spr EA NOSTRIL BID 08/09/21 [History] Baclofen 30 mg PO HS 08/09/21 [History] Ibuprofen [Motrin] 800 mg PO BID PRN 08/09/21 [History] Levothyroxine Sodium 88 mcg PO DAILY 08/09/21 [History] OLANZapine 15 mg PO DAILY 08/09/21 [History] Vilazodone HCl [Viibryd] 10 mg PO DAILY 08/09/21 [History] Vilazodone HCl [Viibryd] 20 mg PO DAILY 08/09/21 [History] clonazePAM [KlonoPIN] 0.5 mg PO BID PRN 08/09/21 [History] rOPINIRole HCL [Requip] 4 mg PO HS 08/09/21 [History] traZODone HCL [Desyrel] 300 mg PO HS 08/09/21 [History] Follow up Appointment(s)/Referral(s): Marta Oneal MD [Primary Care Provider] - 1-2 days Discharge Disposition: TRANSFER TO PSYCH HOSP/UNIT
[2021-08-11 10:18] LABS: ALT 35 U/L (4-34); AST 26 U/L (14-36); African American GFR (CKD) >90 (>60 ml/min/1.73 sqM); Albumin 4.1 g/dL (3.5-5.0); Alkaline Phosphatase 104 U/L (38-126); Anion Gap 9 mmol/L; Blood Urea Nitrogen 15 mg/dL (7-17); Calcium 10.1 mg/dL (8.4-10.2); Carbon Dioxide 22 mmol/L (22-30); Chloride 107 mmol/L (98-107); Glucose 113 mg/dL (74-99); Non-African American GFR(CKD) 89 (>60 ml/min/1.73 sqM); Potassium 4.1 mmol/L (3.5-5.1); Sodium 138 mmol/L (137-145); Total Bilirubin 0.5 mg/dL (0.2-1.3); Total Protein 6.8 g/dL (6.3-8.2)
[2021-08-11 15:39] VITALS: BP 102/71; PULSE 87; TEMP 97.8
== END 2021-08-11 18:25 | DRG 918 ==
LOC: EC 04:13 → 3SCARD 07:13
PROVIDERS: ADMIT Internal Medicine; ATTEND Internal Medicine
DX: T50.902A Poisoning by unspecified drugs, medicaments and biological substances, intentional self-harm, initial encounter (principal); E87.2 Acidosis; G40.909 Epilepsy, unspecified, not intractable, without status epilepticus; Z20.822 Contact with and (suspected) exposure to COVID-19; M79.7 Fibromyalgia; E78.5 Hyperlipidemia, unspecified; G62.9 Polyneuropathy, unspecified; J44.9 Chronic obstructive pulmonary disease, unspecified; F32.9 Major depressive disorder, single episode, unspecified; G43.909 Migraine, unspecified, not intractable, without status migrainosus; G25.81 Restless legs syndrome; F43.10 Post-traumatic stress disorder, unspecified; E03.9 Hypothyroidism, unspecified; M41.9 Scoliosis, unspecified; M54.9 Dorsalgia, unspecified; M19.90 Unspecified osteoarthritis, unspecified site; R19.5 Other fecal abnormalities; R19.7 Diarrhea, unspecified; F17.210 Nicotine dependence, cigarettes, uncomplicated; Z71.6 Tobacco abuse counseling; Z79.890 Hormone replacement therapy; Z79.899 Other long term (current) drug therapy; Z77.098 Contact with and (suspected) exposure to other hazardous, chiefly nonmedicinal, chemicals; Z90.710 Acquired absence of both cervix and uterus; Z87.42 Personal history of other diseases of the female genital tract; Z87.39 Personal history of other diseases of the musculoskeletal system and connective tissue; Z87.2 Personal history of diseases of the skin and subcutaneous tissue; Z87.09 Personal history of other diseases of the respiratory system; Z86.2 Personal history of diseases of the blood and blood-forming organs and certain disorders involving the immune mechanism; Z98.890 Other specified postprocedural states; Z71.51 Drug abuse counseling and surveillance of drug abuser; Z88.8 Allergy status to other drugs, medicaments and biological substances; Z80.3 Family history of malignant neoplasm of breast; Z82.49 Family history of ischemic heart disease and other diseases of the circulatory system; Z80.9 Family history of malignant neoplasm, unspecified
CPT/HCPCS: 36415; 36600; 80053; 80143; 80179; 80306; 80320; 82075; 82550; 82803; 82805; 83605; 84439; 84443; 84484; 85025; 85027; 85610; 85730; 86140; 87635; 94640; 96360; 96361; 99285

== ENCOUNTER 2021-08-11 17:59 | Inpatient (IN) | payer MEDICARE, MEDICAID ==
[2021-08-11] MEDS ORDERED: MAGNESIUM HYDROXIDE 2,400 MG/10 ML CUP PO PRN (18:56)
[2021-08-11] MEDS ORDERED: ACETAMINOPHEN TAB 325 MG TAB PO PRN (18:56)
[2021-08-11] MEDS ORDERED: HALOPERIDOL LACTATE 5 MG/ML 1 ML VIAL IM PRN (18:59)
[2021-08-11] MEDS ORDERED: haloperidoL 5 MG TAB PO PRN (18:59)
[2021-08-11] MEDS ORDERED: hydrOXYzine pamoate 25 MG CAP PO PRN (18:59)
[2021-08-11] MEDS: MONTELUKAST 10 MG TAB PO SCH (21:23)
[2021-08-11] MEDS: AZELASTINE 137MCG/SPRAY EA NOSTRIL SCH (21:23)
[2021-08-11] MEDS: BACLOFEN 10 MG TAB PO SCH (21:23)
[2021-08-11] MEDS: rOPINIRole HCL 4 MG TABLET PO SCH (21:23)
[2021-08-11] MEDS: PRAZOSIN 1 MG CAP PO SCH (21:23)
[2021-08-11] MEDS: ALBUTEROL HFA INHALER INHALATION SCH (21:24)
--- NOTE | 2021-08-11 22:24 | P.CONS ---
History of Present Illness - Reason for Consult Consult date: 08/11/21 - History of Present Illness The patient was seen with the mental health unit KAREEM Ross. I was never alone with the patient. Patient is a 56-year-old female with a PMH of depression, COPD, fibromyalgia, and hypothyroidism who had come in to the emergency room after taking several toxic mushrooms. The patient was admitted to the medicine service and underwent treatment as per poison control guidelines including IV sodium bicarbonate. The patient was subsequently discharged to the mental health unit where she was seen and evaluated. She stated that she wishes to be left alone and was not very forthcoming in answered questions with one-word answers. She denied having any physical complaints. She denied chest discomfort, shortness of breath, fever, chills, cough, nausea, vomiting, abdominal pain, diarrhea. She refused to be examined. Review of systems: Pertinent positives and negatives as discussed in HPI, a complete review of systems was performed and all other systems are negative. Physical examination: General: non toxic, no distress, appears at stated age, overweight Derm: no obvious unusual lesions or rashes noted Head: Appears grossly atraumatic and normocephalic Eyes: Refused ENT: Nose and ears atraumatic Neck: Refused Mouth: No obvious lip lesions Cardiovascular: Refused Lungs: Refused Abdominal: Refused Ext: no gross muscle atrophy Neuro: Refused although able to ambulate without difficulty and a normal gait Psych: Alert, oriented, paranoid Assessment/plan Depression with suicidal ideation -As per psychiatry Thank you for allowing us to participate in the care of this patient. We will follow peripherally. Do not hesitate to contact us with questions. Someone can be reached from the [facility] hospitalist group at all hours of the day at [phone]. Past Medical History Past Medical History: Fibromyalgia, Hyperlipidemia, Neurologic Disorder, Osteoarthritis (OA), Seizure Disorder, Thyroid Disorder Additional Past Medical History / Comment(s): MIGRAINES, NEUROPATHY HANDS, FEET & LEGS, " RESTLESS BODY SYNDROME,". SCOLIOSIS, DDD, BACK PAIN. , RASH ON WRIST, ANEMIA. , HX OF EXPOSURE TO AGENT ORANGE, SEIZURES SINCE PUBERTY FROM POSSIBLE CHEMICAL EXPOSURE. , HX OF VIRAL VERTIGO. History of Any Multi-Drug Resistant Organisms: None Reported Past Surgical History: Back Surgery, Breast Surgery, Hysterectomy, Orthopedic Surgery Additional Past Surgical History / Comment(s): ACL REPAIR BOTH KNEES , LUNG BIOPSY 30 YEARS AGO, LUMPECTOMY LEFT BREAST (benign). Past Anesthesia/Blood Transfusion Reactions: No Reported Reaction Past Psychological History: Anxiety, Depression, PTSD Additional Psychological History / Comment(s): "COMPLEX PTSD", HX OF ATTEMPTED SUICIDE. Smoking Status: Current every day smoker Past Alcohol Use History: Occasional Additional Past Alcohol Use History / Comment(s): SMOKES 1PPD OR LESS. SMOKING SINCE 12 YEARS OLD. (39 YRS) Past Drug Use History: Marijuana Additional Drug Use History / Comment(s): OCCASIONAL MARIJUANA USE. - Past Family History Mother Family Medical History: Cancer Additional Family Medical History / Comment(s): BREAST CANCER Father Family Medical History: Cancer Additional Family Medical History / Comment(s): 5 DIFFERENT CANCERS. Sister(s) Family Medical History: Coronary Artery Disease (CAD) Additional Family Medical History / Comment(s): CABG @ 47 YRS OLD Medications and Allergies Home Medications Medication Instructions Recorded Confirmed Type Furosemide [Lasix] 20 mg PO DAILY 07/09/15 08/11/21 History Montelukast [Singulair] 10 mg PO HS 07/23/15 08/11/21 History Albuterol Sulfate [Proair Hfa] 2 puff INHALATION RT-BID 03/31/16 08/11/21 History Baclofen [Lioresal] 10 mg PO BID@0900,1400 03/31/16 08/11/21 History Prazosin HCl 10 mg PO HS 03/31/16 08/11/21 History Azelastine HCl 2 spr EA NOSTRIL BID 08/09/21 08/11/21 History Baclofen 30 mg PO HS 08/09/21 08/11/21 History Ibuprofen [Motrin] 800 mg PO BID PRN 08/09/21 08/11/21 History Levothyroxine Sodium 88 mcg PO DAILY 08/09/21 08/11/21 History OLANZapine 15 mg PO DAILY 08/09/21 08/11/21 History Vilazodone HCl [Viibryd] 10 mg PO DAILY 08/09/21 08/11/21 History Vilazodone HCl [Viibryd] 20 mg PO DAILY 08/09/21 08/11/21 History clonazePAM [KlonoPIN] 0.5 mg PO BID PRN 08/09/21 08/11/21 History rOPINIRole HCL [Requip] 4 mg PO HS 08/09/21 08/11/21 History traZODone HCL [Desyrel] 300 mg PO HS 08/09/21 08/11/21 History Allergies Allergy/AdvReac Type Severity Reaction Status Date / Time bupropion [From Wellbutrin] AdvReac Unknown Verified 08/11/21 18:54 varenicline tartrate AdvReac Confusion Verified 08/11/21 18:54 [From Chantix] venlafaxine [From Effexor] AdvReac Hallucinati Verified 08/11/21 18:54 ons Physical Exam Vitals: Vital Signs Temp Pulse Resp BP Pulse Ox 08/11/21 21:19 106 H 17 134/74 96 08/11/21 18:50 97.2 F L 96 20 121/67 Intake and Output 08/11/21 08/11/21 08/11/21 06:59 14:59 22:59 Other: Weight 77.224 kg
[2021-08-12] MEDS: FUROSEMIDE 20 MG TAB PO SCH ×2 (08:03→10:59)
[2021-08-12] MEDS: NICOTINE 21MG/24HR PATCH TRANSDERM SCH (08:03)
[2021-08-12] MEDS: LEVOTHYROXINE 88 MCG TAB PO SCH (08:03)
[2021-08-12] MEDS: BACLOFEN 10 MG TAB PO SCH ×3 (08:04→21:00)
[2021-08-12] MEDS: OLANZapine 10 MG TAB PO SCH ×2 (08:04→10:59)
[2021-08-12] MEDS: AZELASTINE 137MCG/SPRAY EA NOSTRIL SCH ×2 (08:30→21:06)
[2021-08-12] MEDS: ALBUTEROL HFA INHALER INHALATION SCH ×2 (08:31→20:59)
[2021-08-12 11:32] LABS: ALT 38 U/L (4-34); AST 28 U/L (14-36); African American GFR (CKD) >90 (>60 ml/min/1.73 sqM); Albumin 4.5 g/dL (3.5-5.0); Alkaline Phosphatase 99 U/L (38-126); Anion Gap 11 mmol/L; Blood Urea Nitrogen 16 mg/dL (7-17); Calcium 10.3 mg/dL (8.4-10.2); Carbon Dioxide 21 mmol/L (22-30); Chloride 107 mmol/L (98-107); Glucose 118 mg/dL (74-99); Non-African American GFR(CKD) 86 (>60 ml/min/1.73 sqM); Potassium 4.1 mmol/L (3.5-5.1); Sodium 139 mmol/L (137-145); Total Bilirubin 0.7 mg/dL (0.2-1.3); Total Protein 7.5 g/dL (6.3-8.2)
--- NOTE | 2021-08-12 11:54 | P.HP ---
Psychiatric H&P - . H&P Date: 08/12/21 History & Physical: Allergies Allergy/AdvReac Type Severity Reaction Status Date / Time bupropion [From Wellbutrin] AdvReac Unknown Verified 08/11/21 18:54 varenicline tartrate AdvReac Confusion Verified 08/11/21 18:54 [From Chantix] venlafaxine [From Effexor] AdvReac Hallucinati Verified 08/11/21 18:54 ons Vital Signs Temp 97.2 F L 08/11/21 18:50 Pulse 130 H 08/12/21 08:10 Resp 16 08/12/21 08:10 BP 116/65 08/12/21 08:10 Pulse Ox 96 08/11/21 21:19 Intake & Output 08/11/21 08/12/21 08/12/21 18:59 06:59 18:59 Weight 77.224 kg Laboratory Last Values Sodium 139 mmol/L (137-145) 08/12/21 10:10 Potassium 4.1 mmol/L (3.5-5.1) 08/12/21 10:10 Chloride 107 mmol/L (98-107) 08/12/21 10:10 Carbon Dioxide 21 mmol/L (22-30) L 08/12/21 10:10 Anion Gap 11 mmol/L 08/12/21 10:10 BUN 16 mg/dL (7-17) 08/12/21 10:10 Creatinine 0.78 mg/dL (0.52-1.04) 08/12/21 10:10 Est GFR (CKD-EPI)AfAm >90 (>60 ml/min/1.73 sqM) 08/12/21 10:10 Est GFR (CKD-EPI)NonAf 86 (>60 ml/min/1.73 sqM) 08/12/21 10:10 Glucose 118 mg/dL (74-99) H 08/12/21 10:10 Calcium 10.3 mg/dL (8.4-10.2) H 08/12/21 10:10 Total Bilirubin 0.7 mg/dL (0.2-1.3) 08/12/21 10:10 AST 28 U/L (14-36) 08/12/21 10:10 ALT 38 U/L (4-34) H 08/12/21 10:10 Alkaline Phosphatase 99 U/L (38-126) 08/12/21 10:10 Total Protein 7.5 g/dL (6.3-8.2) 08/12/21 10:10 Albumin 4.5 g/dL (3.5-5.0) 08/12/21 10:10 08/12/21 11:47 IDENTIFYING DATA: This patient is a 56-year-old female, who currently lives with her sister and her boyfriend. She has 1 daughter and lives in a house. She is technically at this time however has been for years now. HISTORY OF PRESENT ILLNESS: The patient initially presented to the hospital as she claimed that she ingested toxic mushrooms at home. Apparently patient called the [place] crisis line speaking of suicidal thoughts and her plan to overdose on these mushrooms. Her UDS is positive for THC. Her lactic acid was elevated. Patient was admitted medically and seen by psychiatry for consult liaison follow -up and evaluation on 08/10. Patient that time was in the room with her sitter. She claims that she did not take any of the toxic mushrooms and states that "they thought I actually took the mushrooms but I didn't". She states that she was having a bad night the night. She claims that she had really bad PTSD and that she had no known triggers. She completely adamantly denied taking any of the mushrooms. She states that she has been dealing with chronic depression. Patient was admitted to the mental health unit yesterday and signed voluntary form. She was seen in her room today and was reluctant to speak to commercial underwriter. She was fairly agitated and upset for being admitted to the mental unit. She states that "I don't trust you". She states that she has multiple problems with several different medications. She appeared to be fairly hostile with commercial underwriter and impulsive. She states that she is still having depression however does not want to be in the hospital. She also admitted to anxiety. She claims that she has poor sleep and poor appetite. At this time patient denies any current suicidal or homical ideations, intent or plan. Patient denies any auditory, visual hallucinations and denies any paranoia or delusions. Patients admits to using cigarettes and marijuana occasionally. Patient appeared to have fairly poor insight and judgment. PAST PSYCHIATRIC HISTORY: Patient has a a history of depression and anxiety. She claims that she has been on several different medications in the past and is now on Zyprexa and Minipress. She states that she was once psychiatrically hospitalized several years ago on the mental health unit. She states that she has a provider at [facility] and she goes there for therapy. She claims that she had 1 suicide attempt 30 years ago however was taken on what happened. Past Medical History: Fibromyalgia, Hyperlipidemia, Neurologic Disorder, Osteoarthritis (OA), Seizure Disorder, Thyroid Disorder Additional Past Medical History / Comment(s): MIGRAINES, NEUROPATHY HANDS, FEET & LEGS, " RESTLESS BODY SYNDROME,". SCOLIOSIS, DDD, BACK PAIN. , RASH ON WRIST, ANEMIA. , HX OF EXPOSURE TO AGENT ORANGE, SEIZURES SINCE PUBERTY FROM POSSIBLE CHEMICAL EXPOSURE. , HX OF VIRAL VERTIGO. ALLERGIES: as per EMR. CHEMICAL DEPENDENCY HISTORY: as per HPI. FAMILY PSYCHIATRIC/SUBSTANCE USE HISTORY: States that her sister and mother both have depression and anxiety SOCIAL HISTORY: Patient was born and raised in [place], she states that she did some University and completed high school. 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 She states that she is currently however has been for several years now. She has 1 daughter. She lives in a house with her sister and her boyfriend. She denies any legal history. MENTAL STATUS EXAM: General Appearance: Patient appears to be stated age is alert, guarded/evasive. Patient appears to have fair hygiene and grooming wearing hospital gown with poor eye contact. Behavior: Patient is calmly lying in bed without any agitated behavior. uncooperative, hostile towards commercial underwriter Speech: Patient's speech is fluent and nonpressured. Mood/Affect: Patient reports their mood is "depressed and anxious", affect is congruent and irritable Suicidality/Homicidality: Patient denies having any suicidal or homicidal ideation intent or plan. Perceptions: Patient denies any visual hallucinations and denies any auditory hallucinations Though content/process: There is no evidence of any delusional thought content and thought process is linear and goal-directed. Focused on discharge. Demanding. Memory and concentration: AOX3, grossly intact for the purposes of this session. Can spell "WORLD" backwards Judgment and insight: poor IMPRESSIONS: Major depressive disorder, recurrent, severe without psychotic features PTSD Cannabis use disorder mild Nicotine dependence STRENGTHS/WEAKNESSES: strength is that patient is [resilient]. Weakness is that patient [has poor judgment and is impulsive] INTELLECT: [average] PLAN: -Patient is admitted under [voluntary] status to MHU for stabilization of psychiatric symptoms and safety. Patient has [not] signed [medication consent] and is placed in patient's chart. -Medications : Will start patient on Lamictal 25 mg twice a day for mood stabilization/depression. We'll also start patient on trazodone 100 mg daily at bedtime for mood/insomnia. Continue with Minipress 10 mg daily at bedtime for nightmares. Clonazepam 0.5 mg twice a day when necessary for anxiety. -Vistaril [and Haldol] PRN for agitation/aggression -Patient was informed of the risks, benefits and side effects of the medication and patient verbally consented to taking the medications. -Internal Medicine consult to perform medical evaluation and physical. -NRT - [nicotine patch] -SW on board for discharge planning. Encourage patient to participate in groups to work on coping skills. 08/12/21 11:53
[2021-08-12] MEDS: clonazePAM 0.5 MG TAB PO PRN (12:48)
[2021-08-12] MEDS: lamoTRIgine 25 MG TAB PO SCH ×2 (12:48→21:02)
[2021-08-12] MEDS: IBUPROFEN 800 MG TAB PO PRN (12:48)
[2021-08-12 20:34] LABS: Chol/HDL Ratio 7.37 Ratio; LDL Cholesterol,Calculated 178.6 mg/dL (0.0-131.0)
[2021-08-12] MEDS: rOPINIRole HCL 4 MG TABLET PO SCH (21:00)
[2021-08-12] MEDS ORDERED: traZODone HCL 100 MG TAB PO SCH (21:00)
[2021-08-12] MEDS ORDERED: traZODone HCL 50 MG TAB PO SCH (21:00)
[2021-08-12] MEDS: MONTELUKAST 10 MG TAB PO SCH (21:02)
[2021-08-12] MEDS: PRAZOSIN 1 MG CAP PO SCH (21:02)
[2021-08-13] MEDS: LEVOTHYROXINE 88 MCG TAB PO SCH (06:23)
[2021-08-13] MEDS: FUROSEMIDE 20 MG TAB PO SCH (08:16)
[2021-08-13] MEDS: AZELASTINE 137MCG/SPRAY EA NOSTRIL SCH ×2 (08:17→21:09)
[2021-08-13] MEDS: ALBUTEROL HFA INHALER INHALATION SCH ×2 (08:19→21:09)
[2021-08-13] MEDS: NICOTINE 21MG/24HR PATCH TRANSDERM SCH (08:19)
[2021-08-13] MEDS: lamoTRIgine 25 MG TAB PO SCH ×2 (08:19→21:10)
[2021-08-13] MEDS: BACLOFEN 10 MG TAB PO SCH ×3 (08:19→21:10)
[2021-08-13] MEDS: clonazePAM 0.5 MG TAB PO PRN ×2 (09:03→21:13)
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
[2021-08-13] MEDS: IBUPROFEN 800 MG TAB PO PRN ×2 (15:15→21:28)
[2021-08-13] MEDS: PRAZOSIN 1 MG CAP PO SCH (21:10)
[2021-08-13] MEDS: DOXEPIN 10 MG CAP PO SCH (21:10)
[2021-08-13] MEDS: MONTELUKAST 10 MG TAB PO SCH (21:10)
[2021-08-13] MEDS: rOPINIRole HCL 4 MG TABLET PO SCH (21:11)
[2021-08-13] MEDS: traZODone HCL 100 MG TAB PO PRN (21:29)
[2021-08-14] MEDS: MAG HYDROX/AL HYDROX/SIMETH 30 ML CUP PO PRN (05:18)
[2021-08-14] MEDS: LEVOTHYROXINE 88 MCG TAB PO SCH (06:42)
[2021-08-14] MEDS: lamoTRIgine 25 MG TAB PO SCH ×2 (08:02→20:59)
[2021-08-14] MEDS: NICOTINE 21MG/24HR PATCH TRANSDERM SCH (08:02)
[2021-08-14] MEDS: BACLOFEN 10 MG TAB PO SCH ×3 (08:02→20:59)
[2021-08-14] MEDS: ALBUTEROL HFA INHALER INHALATION SCH ×2 (08:03→20:58)
[2021-08-14] MEDS: FUROSEMIDE 20 MG TAB PO SCH (08:03)
[2021-08-14] MEDS: AZELASTINE 137MCG/SPRAY EA NOSTRIL SCH ×2 (08:03→20:59)
[2021-08-14] MEDS: clonazePAM 0.5 MG TAB PO PRN (08:04)
[2021-08-14] MEDS: IBUPROFEN 800 MG TAB PO PRN ×2 (08:04→21:01)
[2021-08-14] MEDS: OLANZapine 2.5 MG TAB PO SCH ×2 (18:01→21:01)
--- NOTE | 2021-08-14 20:01 | PN ---
PROGRESS NOTE DATE OF SERVICE: 08/14/2021. CHIEF COMPLAINT: The patient presented with suicide thoughts with a plan to overdose. She has significant history of PTSD issues. INTERVAL HISTORY: The patient has been doing fair. She had a quiet day yesterday. She comes out on the unit. She does interact with others. She has been attending groups and seems to engage well in the group process. She slept fairly well last night. Today she has been up. She has continued in groups, though group notes indicate that she has presented in a withdrawn, low energy manner. It is noteworthy in the 11:00 group it was documented that she "lacks insight into her issues. Patient struggles to identify her stressors, unable to identify solutions." She does note that her mood has improved, though she acknowledges some continued ups and downs with anxiety. She is aware that she drank a significant amount on the day that she came into the hospital, and it is noted that she had an alcohol level of 215. She also acknowledges that she smokes marijuana on a fairly regular basis of 2 to 3 times a week. She also made reference to some of the trauma issues that she has struggled with in the past. She tolerates her psychotropic medications. MENTAL STATUS EXAM: Patient sat with some restlessness. She gave good eye contact. She answered questions appropriately. Her thoughts were clear and coherent. She was spontaneous and interactive. Her affect was somewhat anxious, her mood dysphoric. She was somewhat distressed. There was no indication of thought disorder. She denied thoughts of harm. Cognition was clear. ASSESSMENT: I will continue the current diagnosis and treatment plan. We will continue to engage the patient in individual and group therapeutic activities. I had an extensive discussion with the patient regarding acute substance withdrawal issues that may be a more significant current issue for her. Along with this we discussed some of the issues she struggled with in regard to trauma. I will discontinue clonazepam. The patient stated she was not aware of the habit forming nature of the medication. At this point I will start the patient on Zyprexa 2.5 mg three times a day. The aim of Zyprexa is to help reduce physiologic stress response relating to both withdrawal issues and trauma. I had an extensive discussion with the patient regarding treatment issues. I reviewed her antipsychotic in terms of indications and potential side effects as well as concerns relating to metabolics and movement disorder issues. We will focus on stabilization and discharge planning. I would anticipate the patient being discharged fairly early in the week, given the progress she has made. NEHAL / KRIS: [id number] / BLANCA
[2021-08-14] MEDS: MONTELUKAST 10 MG TAB PO SCH (20:59)
[2021-08-14] MEDS: PRAZOSIN 1 MG CAP PO SCH (20:59)
[2021-08-14] MEDS: DOXEPIN 10 MG CAP PO SCH (21:00)
[2021-08-14] MEDS: rOPINIRole HCL 4 MG TABLET PO SCH (21:00)
[2021-08-15] MEDS: LEVOTHYROXINE 88 MCG TAB PO SCH (06:35)
[2021-08-15] MEDS: NICOTINE 21MG/24HR PATCH TRANSDERM SCH (08:55)
[2021-08-15] MEDS: ALBUTEROL HFA INHALER INHALATION SCH ×2 (08:56→20:05)
[2021-08-15] MEDS: AZELASTINE 137MCG/SPRAY EA NOSTRIL SCH ×2 (08:56→20:06)
[2021-08-15] MEDS: OLANZapine 2.5 MG TAB PO SCH ×3 (08:57→20:06)
[2021-08-15] MEDS: BACLOFEN 10 MG TAB PO SCH ×3 (08:57→20:06)
[2021-08-15] MEDS: lamoTRIgine 25 MG TAB PO SCH ×2 (08:57→20:06)
[2021-08-15] MEDS: FUROSEMIDE 20 MG TAB PO SCH (08:58)
--- NOTE | 2021-08-15 11:11 | PN ---
PROGRESS NOTE DATE OF SERVICE: 08/15/2021. CHIEF COMPLAINT: The patient presented with suicide thoughts with a plan to overdose. She has significant history of PTSD issues. INTERVAL HISTORY: Patient has been doing fairly well. She seems to be making some progress. Yesterday she had a quiet day. She attended groups. She did have some issues in one group where she felt constrained in talking about her issues. She generally presents in groups in a somewhat quiet, withdrawn manner. She slept fairly well last night. Today she has been up. She notes that often when she wakes in the morning she struggles with the idea that she thinks she talks too much and perhaps exposes too much of herself. She says she struggles with this as part of her personality issue. She also notes that she has struggled over a long period of time DID issues. She notes that in the last few years she has had less regression to other personalities. She notes that she has not had any significant situations that would raise concern of safety. She says for the most part she maintains one steady personality, though, and on infrequent occasions may regress to an alternate personality that could continue for a day or longer and then subside. She has been working for the last two years with a therapist at [facility]. She says the counseling has been quite effective for her. She said she has not had problems with the start of Zyprexa and thinks that it is maybe helping in terms of lessening some anxiety issues for her. MENTAL STATUS EXAM: Patient sat without restlessness. She gave fairly good eye contact. She answered questions appropriately. Her thoughts were clear. Her affect was somewhat anxious, her mood reserved. She did not appear to be distressed. There was no indication of thought disorder. She voiced no thoughts of harm. Cognition was clear. ASSESSMENT: I will continue current diagnosis and treatment plan. I will continue psychotropic medications the same. We again reviewed withdrawal issues, given that Klonopin has been discontinued. It is noted that the patient shows elevated lipid levels and will be started on Lipitor 40 mg a day. We will focus on stabilization and discharge planning. MMODL / IJN: [id number] /
[2021-08-15] MEDS: IBUPROFEN 800 MG TAB PO PRN (14:34)
[2021-08-15] MEDS: DOXEPIN 10 MG CAP PO SCH (20:06)
[2021-08-15] MEDS: MONTELUKAST 10 MG TAB PO SCH (20:06)
[2021-08-15] MEDS: rOPINIRole HCL 4 MG TABLET PO SCH (20:06)
[2021-08-15] MEDS: PRAZOSIN 1 MG CAP PO SCH (20:07)
[2021-08-15] MEDS: traZODone HCL 100 MG TAB PO PRN (20:46)
[2021-08-16] MEDS: MAG HYDROX/AL HYDROX/SIMETH 30 ML CUP PO PRN (00:37)
[2021-08-16 00:38] VITALS: BP 124/81; PULSE 116; RESP 20; TEMP 97.8
[2021-08-16] MEDS: NICOTINE 21MG/24HR PATCH TRANSDERM SCH (08:01)
[2021-08-16] MEDS: FUROSEMIDE 20 MG TAB PO SCH (08:02)
[2021-08-16] MEDS: AZELASTINE 137MCG/SPRAY EA NOSTRIL SCH (08:03)
[2021-08-16] MEDS: OLANZapine 2.5 MG TAB PO SCH (08:03)
[2021-08-16] MEDS: lamoTRIgine 25 MG TAB PO SCH (08:03)
[2021-08-16] MEDS: BACLOFEN 10 MG TAB PO SCH ×2 (08:03→14:18)
[2021-08-16] MEDS: ALBUTEROL HFA INHALER INHALATION SCH (08:03)
[2021-08-16] MEDS: LEVOTHYROXINE 88 MCG TAB PO SCH (08:03)
[2021-08-16] MEDS ORDERED: ATORVASTATIN 40 MG TAB PO SCH (09:15)
[2021-08-16] MEDS: IBUPROFEN 800 MG TAB PO PRN (12:06)
--- NOTE | 2021-08-17 20:27 | DS ---
DISCHARGE SUMMARY DATE OF DISCHARGE: 08/16/2021 DATE OF ADMISSION: 08/11/2021. DATED DISCHARGE: 08/16/2021 ADMISSION AND DISCHARGE DIAGNOSES: 1. Major depressive disorder, recurrent, severe, without psychotic features. 2. PTSD. 3. Cannabis use disorder. HISTORY OF PRESENTING ILLNESS: The patient is a 56-year-old female. She lives with her sister and sister's boyfriend. She presented to the hospital with high anxiety. There was some question that she may have ingested toxic chemicals though she did say this was not accurate. Urine drug screen was positive for THC. She indicated that she was having mood difficulties and high distress relating to PTSD. She had poor sleep and appetite. Mood was down. She was denying suicidal thoughts at the time of admission. There was no indication of thought disorder, though she did have suspiciousness and a sense that she did not trust others around her. It was unclear whether that talya to the level of paranoia. Current psychotropic medications included Zyprexa and Minipress. Minipress has been indicated for her nightmares related to PTSD. She had one prior psychiatric hospitalizations several years ago. She is followed up through [facility] and has been in regular therapy for the last two years. She had a suicide attempt 30 years ago. She was admitted for further evaluation. SUBSTANCE USE HISTORY: Positive for marijuana. PAST MEDICAL HISTORY: Fibromyalgia, hyperlipidemia, arthritis, seizure disorder, thyroid disorder, migraine headaches, history of exposure to [place]. MENTAL STATUS EXAM: The patient presented in a calm manner without agitation or restlessness. Speech was fluent. She had depressed mood and anxious affect. She presented with irritability. There was no indication of thought disorder. On cognitive exam she was oriented and alert. COURSE OF HOSPITALIZATION: Patient was admitted for comprehensive medical, psychiatric and psychosocial evaluation. We engaged the patient in individual and group therapeutic activities. On admission the patient was started on Lamictal 25 mg twice a day, Trazodone 100 mg at bedtime, Minipress 10 mg at bedtime and Klonopin 0.5 mg twice a day as needed for anxiety. Early on in her hospitalization, patient was somewhat withdrawn. She was able to talk about difficulty she has stating that "I don't trust men very well." She was able to talk about trauma issues early in her life. Early on her sleep was poor, Lamictal was titrated up to 50 mg twice a day. As her hospitalization progressed the patient showed gradual improvement. She was attending groups. There were few groups where she seemed to have some difficulty interacting with others, though for the most part she seemed to be able to engage reasonably well. It was noted that she had drank a significant amount of alcohol coming into the hospital and had an alcohol blood level on admission of 215. She noted that she smoked marijuana 2-3 times a week on a regular basis. She gradually showed improvement in her mood. She interacted appropriately with others. Her Klonopin was discontinued due to concerns regarding any issues of dependency. She was strongly encouraged to stay off marijuana altogether. She was given education in regards to potential withdrawal issues related to stopping marijuana. She was started on Zyprexa 2.5 mg 3 times a day. The aim of Zyprexa was to help reduce physiologic stress response relating to early acute withdrawal from marijuana. Whether or not there are any other drug dependency issues in her history was uncertain. It was noted the patient was able to give information in regards to an underlying diagnosis she has of DID. She says she has been working with her therapist at [facility] for the last two years and notes that over the last year or more she has been fairly stable and not having dissociation to alternative personalities. She said that when she has had dissociations they have not put her at any safety concerns. She noted that the therapist she works with is well trained in regards to issues of DID and she feels that she has made good progress in that regard. Toward the end of her hospitalization she continued to show improvement in her mood. She engaged appropriately in discharge planning. She was able to engage productively in group activities as well as with one-on-one counseling. CONDITION AT DISCHARGE: Patient was stable. Her mood was improved. She denied thoughts of harm. She tolerated her psychotropic medications. RECOMMENDATIONS AND FOLLOWUP: The patient is referred to [facility]. She has an appointment in one week with Katie. DISCHARGE MEDICATIONS: Trazodone 100 mg a day, Lamictal 50 mg twice a day, Lipitor 40 mg a day which was started on the unit for elevated lipid levels, Prazosin 10 mg a day., doxepin 10 mg a day, Vistaril 25 mg p.r.n. and Zyprexa 2.5 mg 3 times a day. She is referred to [facility] in one week for general health followup. MMODL / IJN: [id number] /
== END 2021-08-16 15:15 | disposition home or self-care (01) | DRG 885 ==
LOC: 3MHU 18:30
PROVIDERS: ADMIT Psychiatry & Neurology Psychiatry; ATTEND Psychiatry & Neurology Psychiatry
DX: F33.2 Major depressive disorder, recurrent severe without psychotic features (principal); R45.851 Suicidal ideations; E03.9 Hypothyroidism, unspecified; E78.5 Hyperlipidemia, unspecified; F12.10 Cannabis abuse, uncomplicated; F17.200 Nicotine dependence, unspecified, uncomplicated; F43.10 Post-traumatic stress disorder, unspecified; G40.909 Epilepsy, unspecified, not intractable, without status epilepticus; J44.9 Chronic obstructive pulmonary disease, unspecified; M41.9 Scoliosis, unspecified; M79.7 Fibromyalgia; Y90.7 Blood alcohol level of 200-239 mg/100 ml; Z79.890 Hormone replacement therapy; Z79.899 Other long term (current) drug therapy; Z80.3 Family history of malignant neoplasm of breast; Z82.49 Family history of ischemic heart disease and other diseases of the circulatory system; Z90.710 Acquired absence of both cervix and uterus
CPT/HCPCS: 80053; 80061; 83036

== ENCOUNTER → 2025-05-02 | Outpatient (CLI) | payer MEDICARE, OTHER | END | disposition home or self-care (01) | LOC: LABWHC1 12:54 | PROVIDERS: ATTEND Nurse Practitioner Family | DX: Z01.818 Encounter for other preprocedural examination (principal) | CPT/HCPCS: 36415; 93005 ==